=== PATIENT | male | born 1950 | race Two or more races ===

== ENCOUNTER 2017-10-03 14:56 | Outpatient (CLI) | payer OTHER | END 2017-10-03 15:27 | disposition home or self-care (01) | LOC: LAB 14:56 | DX: D64.9 Anemia, unspecified (principal); N39.9 Disorder of urinary system, unspecified; E11.9 Type 2 diabetes mellitus without complications; E78.5 Hyperlipidemia, unspecified; E07.9 Disorder of thyroid, unspecified; N40.0 Benign prostatic hyperplasia without lower urinary tract symptoms ==

== ENCOUNTER 2018-05-01 14:06 | Outpatient (CLI) | payer OTHER | END 2018-05-01 14:14 | disposition home or self-care (01) | LOC: LAB 14:06 | DX: D64.89 Other specified anemias (principal); N39.9 Disorder of urinary system, unspecified; E11.9 Type 2 diabetes mellitus without complications; E07.89 Other specified disorders of thyroid; E78.4 Other hyperlipidemia ==

== ENCOUNTER → 2024-02-22 | Emergency (ER) | payer OTHER ==
[~2024-02-22] VITALS: Ht 175.3 cm; Wt 91.6 kg
[~2024-02-22] MED LIST: BISOPROLOL FUMAR5 MG; SIMVASTATIN40 MG; ZYLOPRIM100 M1; ZYLOPRIM100 M1 PO
== END | disposition left against medical advice (07) ==
LOC: ER 21:52
DX: Z53.21 Procedure and treatment not carried out due to patient leaving prior to being seen by health care provider (principal)

== ENCOUNTER 2025-03-03 02:26 | Emergency (ER) | payer OTHER ==
[~2025-03-03] VITALS: Ht 170.2 cm; Wt 90.7 kg
== END 2025-03-04 10:07 | disposition left against medical advice (07) ==
LOC: ER 02:26
DX: Z53.21 Procedure and treatment not carried out due to patient leaving prior to being seen by health care provider (principal)